=== PATIENT | male | born 1995 | race Two or more races ===

== ENCOUNTER 2019-02-19 08:39 | Emergency (ER) | payer BC ==
[~2019-02-19] VITALS: Ht 170.2 cm; Wt 78.0 kg
--- NOTE | 2019-02-19 08:56 | NUR ---
PT HAS COUGH, SORE THROAT, CHILLS SINCE TUESDAY. STATES DIFFICULT HAVING A BM. PT CONCERNED ABOUT BEING EXPOSED TO STD ON TUESDAY. NO SYMPTOMS R/T SAME AT THIS TIME
[2019-02-19] MEDS ORDERED: ACETAMINOPHEN 500 MG TABLET ONE (09:12)
[2019-02-19] MEDS ORDERED: AZITHROMYCIN 250 MG TABLET ONE (09:12)
[2019-02-19] MEDS ORDERED: SODIUM CHLORIDE 0.9% 1,000 ML IV ONE (09:12)
[2019-02-19] MEDS ORDERED: CEFTRIAXONE 250 MG ONE (09:12)
[2019-02-19] MEDS ORDERED: CEFTRIAXONE PMX 1GM/50ML 50 ML ONE (09:14)
[2019-02-19] MEDS ORDERED: CEFTRIAXONE 250 MG IM ONE (09:30)
[2019-02-19] MEDS ORDERED: AZITHROMYCIN 250 MG TABLET PO ONE (09:30)
[2019-02-19] MEDS ORDERED: DEXAMETHASONE 4 MG/ML, 1ML PO ONE (09:30)
[2019-02-19] MEDS ORDERED: ACETAMINOPHEN 500 MG TABLET PO ONE (09:30)
[2019-02-19] MEDS ORDERED: CEFTRIAXONE PMX 1GM/50ML 50 ML IV ONE (09:30)
[2019-02-19] MEDS ORDERED: DEXAMETHASONE 4 MG/ML, 1ML ONE (09:30)
[2019-02-19 09:47] LABS: BASOPHILS # (AUTO) 0.01 x10^3/uL (0-0.1); BASOPHILS % (AUTO) 0 % (0-1); EOSINOPHILS % (AUTO) 0 % (1-7); LYMPHOCYTES # (AUTO) 0.75 x10^3/uL (1-3.4); LYMPHOCYTES % (AUTO) 20 % (22-44); MD NO; MEAN CORPUSCULAR HEMOGLOBIN 28.1 pg (27.5-34.5); MEAN CORPUSCULAR HGB CONC 33.6 g/dL (33.2-36.2); MEAN CORPUSCULAR VOLUME 83.6 fL (81-97); MEAN PLATELET VOLUME 8.3 fL (7.4-10.4); MONOCYTES # (AUTO) 0.24 x10^3/uL (0.2-0.8); MONOCYTES % (AUTO) 6 % (2-9); NEUTROPHILS # (AUTO) 2.81 x10^3/uL (1.8-6.8); NEUTROPHILS % (AUTO) 74 % (42-75); PLATELET COUNT 165 x10^3/uL (130-400); RED BLOOD COUNT 5.09 x10^6/uL (4.38-5.82); RED CELL DISTRIBUTION WIDTH 13.5 % (9.4-14.8)
--- NOTE | 2019-02-19 09:47 | NUR ---
AFTER TWO BLOOD CULTURES OBTAINED, PT GIVEN ANTIBIOTICS PER ORDERS
[2019-02-19 09:55] LABS: ALBUMIN 3.3 g/dL (3.4-5.0); ANION GAP 7 mmol/L (5-15); CALCIUM 8.5 mg/dL (8.5-10.1); CHLORIDE 101 mmol/L (98-107); CREATININE 0.97 mg/dL (0.7-1.3)
[2019-02-19] MEDS ORDERED: DEXAMETHASONE 4 MG/ML, 1ML IVPush ONE (10:30)
--- NOTE | 2019-02-19 10:47 | NUR ---
PT NOT COUGHING AT THIS TIME. STATES HE FEELS BETTER. UP TO BATHROOM
[2019-02-19 10:59] VITALS: BP 134/58
--- NOTE | 2019-02-19 11:00 | NUR ---
AT BEDSIDE RE-EVALUATING PT
== END 2019-02-19 11:10 | disposition home or self-care (01) ==
LOC: ED 11:00
DX: J36 Peritonsillar abscess (principal)
CPT/HCPCS: 36415; 71046; 80048; 82040; 83605; 84145; 85025; 87040; 87081; 87491; 87591; 87806; 87880; 96365; 99284; J0696; J1100; J7030; G0475